=== PATIENT | female | born 1990 | race Caucasian/White ===

== ENCOUNTER → 2019-09-08 | Outpatient (CLI) | payer OTHER ==
[~2019-09-08] MED LIST: AMOX500 PO; AZIT250 PO; CIPR500 PO; DIPH50 PO; HYDACE5 PO; HYDPAM50 PO; MELA3 PO; OMEP20ER PO; PROM25S PR; RANI150 PO; TRAM50 PO; VALARIAN ROOT
== END | disposition home or self-care (01) ==
LOC: LAB 11:15 → LAB SHORT 11:15
DX: L02.413 Cutaneous abscess of right upper limb (principal)
CPT/HCPCS: 87070; 87075; 87077; 87147; 87186; 87205

== ENCOUNTER → 2021-06-11 | Outpatient (CLI) | payer OTHER | END | disposition home or self-care (01) | LOC: LAB 17:22 → LAB SHORT 17:22 | DX: L02.91 Cutaneous abscess, unspecified (principal) | CPT/HCPCS: 87070; 87075; 87077; 87147; 87186; 87205 ==